=== PATIENT | male | born 1950 | race Caucasian/White ===

== ENCOUNTER 2021-03-09 13:45 | Outpatient (REF) | payer MEDICARE, SELFPAY ==
--- NOTE | ~2021-03-09 | CT_ITS ---
EXAMINATION: CT ABDOMEN AND PELVIS WITHOUT AND WITH CONTRAST CLINICAL INFORMATION: Gross hematuria COMPARISON: None TECHNIQUE: Multidetector volumetric imaging was performed of the abdomen and pelvis before and after the IV administration of 85 mL of Omnipaque 350 intravenous contrast. Sagittal and coronal reformatted images were obtained on the technologist's workstation. This CT examination was performed using dose optimization techniques as appropriate, variously including the following: *Automated exposure control *Adjustment of mA and/or kV according to patient size (this includes techniques or standardized protocols for targeted exams where dose is matched to indication/reason for exam; i.e. extremities or head) *Use of iterative reconstruction technique DLP: 1129.00 mGy-cm FINDINGS: LUNG BASES: The visualized lung bases are unremarkable. Dependent groundglass changes are present. LIVER, GALLBLADDER, AND BILIARY TREE: The liver is normal in size, shape, and attenuation. Multiple hepatic hypodensities are seen ranging in size from under a centimeter to 2 cm. The largest hypodensities measure water density and these are all probably simple cysts. No focal single suspicious solid hepatic lesion or biliary ductal dilatation is present. The gallbladder is unremarkable with no evidence of radiopaque gallstones, gallbladder wall thickening, or obvious pericholecystic inflammatory changes. PANCREAS: A 9 mm cyst is present in the tail of the pancreas. No solid pancreatic masses are seen. No ductal dilatation is seen. SPLEEN: Unremarkable ADRENAL GLANDS: Unremarkable KIDNEYS AND URETERS: The kidneys are normal in size, shape, and attenuation. A left lower pole 2.5 cm Bosniak class I renal cyst is present. No solid renal parenchymal masses are seen. Pelvicalyceal systems appear normal. 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 Compound calyces are present in both upper poles. No hydronephrosis, hydroureter, or calculi seen. No perinephric stranding. BLADDER: There is an irregular mass present at the bladder base on the right measuring 1.7 x 1.3 x 1.6 cm. Findings are highly suspicious for transitional cell carcinoma and cystoscopy and biopsy is recommended. There is also a marked impression at the base of the bladder in the midline from an enlarged median lobe of the prostate. GASTROINTESTINAL TRACT: Sigmoid diverticular changes are present without diverticulitis. The small and large bowel are otherwise unremarkable. The appendix is unremarkable. ABDOMINAL WALL: No significant hernia is appreciated. LYMPH NODES: No retroperitoneal lymphadenopathy. VASCULAR: There is a celiac stenosis present with poststenotic dilatation. The SMA is widely patent. The ANTONY is patent. There is mild dilatation of the infrarenal aorta at 3.4 cm. The aortic bifurcation and iliac arteries are tortuous. Marked fusiform dilatation of the common iliac arteries are present measuring 2.2 cm on the left and 1.7 cm on the right. PELVIC VISCERA: There is marked enlargement of the prostate measuring between 130 and 160 grams. Seminal vesicles appear normal. OSSEOUS STRUCTURES: Biconvex thoracolumbar scoliosis is present along with severe degenerative changes in the spine. No gross bony destructive lesions. CT/CT abdomen pelvis wo/w con IMPRESSION: 1. Irregular mass at the right bladder base suspicious for transitional cell carcinoma. Cystoscopy and biopsy is recommended. 2. Markedly enlarged prostate. 3. Incidentally noted hepatic cysts, single 9 mm pancreatic cyst, Bosniak class I left renal cyst needs no further follow-up, colonic diverticulosis without diverticulitis and celiac stenosis. Fleischner guidelines were followed. This report will be called to the patient's provider by the physician support services.
[2021-03-09] MEDS: iohexoL 350 MG/ML 100 ML INFUS..BTL IV (15:19)
== END 2021-03-09 13:46 | disposition home or self-care (01) ==
LOC: HO.CT 13:45
PROVIDERS: Visit Provider Physician Assistant
DX: R31.0 Gross hematuria (principal)
CPT/HCPCS: 74178; Q9967